=== PATIENT | male | born 1995 | race Caucasian/White ===

== ENCOUNTER 2020-11-21 12:33 | Emergency (ER) | payer OTHER, MEDICAID ==
[~2020-11-21] VITALS: Ht 167.6 cm; Wt 90.9 kg
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
[2020-11-21] MEDS ORDERED: NEOSPORIN OINT 0.9 GM PKT TOP ONE (14:00)
[2020-11-21] MEDS ORDERED: CEPH500C PO (14:00)
[2020-11-21 14:07] VITALS: BP 111/61
== END 2020-11-21 14:22 | disposition home or self-care (01) ==
LOC: M ED 12:33
DX: S91.312A Laceration without foreign body, left foot, initial encounter (principal); W27.1XXA Contact with garden tool, initial encounter; Y92.099 Unspecified place in other non-institutional residence as the place of occurrence of the external cause; Y93.9 Activity, unspecified; Y99.9 Unspecified external cause status; F12.10 Cannabis abuse, uncomplicated

== ENCOUNTER → 2022-03-07 | Outpatient (REF) | payer OTHER, MEDICAID ==
[~2022-03-07] MED LIST: CEPH500C PO
[2022-03-07 12:03] LABS: SEMEN APPEARANCE OPAQUE (OPAQUE); SEMEN VISCOSITY LIQUID (LIQUID); SEMEN VOLUME 5.7 ml (2.0-5.0); WBC CONCENTRATION <=1 M/ml (<=1 M/ml)
[2022-03-07 12:04] LABS: SPERM CONCENTRATION 6.2 M/ml (>=15.0)
== END ==
LOC: M LAB REF 10:39
PROVIDERS: ATTEND Obstetrics & Gynecology Obstetrics
DX: Z31.41 Encounter for fertility testing (principal)

== ENCOUNTER → 2023-01-24 | Outpatient (REF) | payer OTHER, MEDICAID ==
[2023-01-24 14:25] LABS: SEMEN APPEARANCE OPAQUE (OPAQUE)
[2023-01-24 14:26] LABS: SEMEN VISCOSITY LIQUID (LIQUID); SEMEN VOLUME 2.5 ml (2.0-5.0); SPERM CONCENTRATION 29.5 M/ml (>=15.0); WBC CONCENTRATION <=1 M/ml (<=1 M/ml)
== END ==
LOC: M LAB REF 14:12
PROVIDERS: ATTEND Specialist
DX: N46.9 Male infertility, unspecified (principal)

== ENCOUNTER 2023-12-02 12:50 | Emergency (ER) | payer MEDICAID, OTHER ==
[~2023-12-02] VITALS: Ht 167.6 cm; Wt 86.4 kg
[2023-12-02 13:40] LABS: BASO # 0.1 10^3/uL (0.0-0.2); BASO % 1.1 % (0.0-1.0); EOS # 0.4 10^3/uL (0.0-0.5); HEMATOCRIT 43.5 % (42.0-52.0); LYMPH # 1.8 10^3/uL (1.5-5.0); LYMPH % 22.4 % (24.0-44.0); MEAN CORPUSCULAR HEMOGLOBIN 31.9 pg (27.0-33.0); MEAN CORPUSCULAR HGB CONC 34.5 g/dl (32.0-36.5); MEAN CORPUSCULAR VOLUME 92.6 fl (80.0-96.0); MONO # 0.6 10^3/uL (0.0-0.8); MONO % 7.4 % (2.0-8.0); NEUTROPHILS # 5.2 10^3/uL (1.5-8.5); NEUTROPHILS % 63.5 % (36.0-66.0); PLATELET COUNT, AUTOMATED 291 10^3/uL (150-450); WHITE BLOOD COUNT 8.2 10^3/uL (4.0-10.0)
[2023-12-02 13:52] LABS: INR 0.96; PARTIAL THROMBOPLASTIN TIME 29.3 SECONDS (24.8-34.2); PROTHROMBIN TIME 12.5 SECONDS (12.5-14.5)
[2023-12-02 13:58] LABS: LIPASE 34 U/L (12-53)
[2023-12-02 14:01] LABS: ALBUMIN 3.9 G/DL (3.2-5.2); ALKALINE PHOSPHATASE 109 U/L (46-116); ALT/SGPT 27 U/L (7.0-40); AST/SGOT 18 U/L (<34); BILIRUBIN,DIRECT < 0.1 MG/DL (<0.4); BILIRUBIN,TOTAL 0.3 MG/DL (0.3-1.2); BLOOD UREA NITROGEN 19 MG/DL (9-23); CALCIUM LEVEL 9.6 MG/DL (8.5-10.1); CARBON DIOXIDE LEVEL 26 MMOL/L (20-31); CHLORIDE LEVEL 108 MMOL/L (98-107); GLOMERULAR FILTRATION RATE > 60.0 (>60); GLUCOSE, FASTING 92 MG/DL (60-100); SODIUM LEVEL 140 MMOL/L (136-145); TOTAL PROTEIN 7.2 G/DL (5.7-8.2)
[2023-12-02] MEDS ORDERED: ISOVUE-370 76% 100ML VIAL As Ordered ONE (16:23)
[2023-12-02] MEDS: ONDANSETRON 4MG 2ML VIAL IV ONE (16:27)
[2023-12-02] MEDS ORDERED: ANUS2.5C2 TOP (17:00)
[2023-12-02 17:04] VITALS: BP 127/88; TEMP 97.8; O2SAT 98
== END 2023-12-02 17:07 | disposition home or self-care (01) ==
LOC: M ED 12:50
DX: K64.9 Unspecified hemorrhoids (principal); F17.200 Nicotine dependence, unspecified, uncomplicated
CPT/HCPCS: 74177; 80053; 82248; 83690; 85025; 85384; 85610; 85730; 86850; 86900; 86901; 96374; 99284; J2405; Q9967